=== PATIENT | male | born 1970 | race Caucasian/White ===

== ENCOUNTER 2023-10-14 09:02 | Emergency (ER) | payer OTHER ==
[~2023-10-14] VITALS: Ht 182.9 cm; Wt 95.5 kg
[2023-10-14 09:05] VITALS: TEMP 98.4
[2023-10-14] MEDS: LIDOCAINE 1% 10 ML VIAL ID ONE (09:30)
[2023-10-14] MEDS: 0.9% SODIUM CHLORIDE 1000 ML IRRIG SOLUTION BOTTLE IRRIG ONE (09:39)
[2023-10-14 10:45] VITALS: BP 138/84; PULSE 84; RESP 11
== END 2023-10-14 10:46 | disposition home or self-care (01) ==
LOC: EMS 09:09
DX: S51.811A Laceration without foreign body of right forearm, initial encounter (principal); W26.8XXA Contact with other sharp object(s), not elsewhere classified, initial encounter; Y93.89 Activity, other specified; Y92.89 Other specified places as the place of occurrence of the external cause; Y99.0 Civilian activity done for income or pay
CPT/HCPCS: 99282; 12002; J3490